=== PATIENT | male | born 2000 | race Asian ===

== ENCOUNTER 2019-05-15 00:44 | Emergency (ER) | payer OTHER ==
[~2019-05-15] VITALS: Ht 162.6 cm; Wt 46.7 kg
[2019-05-15 00:50] VITALS: Ht 162.6 cm; Wt 46.7 kg
[2019-05-15 02:00] LABS: BASOPHIL % 0.3 % (0-2); PLATELET COUNT 305 x10^3mcL (130-400); RED CELL DISTRIBUTION WIDTH 13.2 % (11.5-14.5)
[2019-05-15 02:12] LABS: AMPHETAMINE QUAL UR NONE DETECTED (See below)
[2019-05-15 02:19] LABS: CALCIUM 7.6 mg/dL (8.5-10.1); CARBON DIOXIDE 29.7 mmol/L (21-32); CHLORIDE SERUM 102 mmol/L (98-107); CREATININE SERUM 1.4 mg/dL (0.7-1.3); GFR1 > 60 mL/min; GLUCOSE SERUM 167 mg/dL (74-106); POTASSIUM SERUM 3.7 mmol/L (3.5-5.1); SODIUM SERUM 141 mmol/L (136-145)
[2019-05-15 02:24] LABS: ALBUMIN 3.6 g/dL (3.4-5.0); ALKALINE PHOSPHATASE 99 U/L (46-116); ALT/SGPT 25 U/L (16-63); AST/SGOT 21 U/L (15-37); BILIRUBIN TOTAL 0.21 mg/dL (0.20-1.00)
[2019-05-15 05:03] VITALS: BP 105/69
== END 2019-05-15 05:04 | disposition home or self-care (01) ==
LOC: ED 00:44
PROVIDERS: Emergency Medicine
DX: T40.2X1A Poisoning by other opioids, accidental (unintentional), initial encounter (principal); Y92.89 Other specified places as the place of occurrence of the external cause
CPT/HCPCS: G0480; J2310; J2405

== ENCOUNTER 2020-07-06 13:36 | Emergency (ER) | payer BC ==
[~2020-07-06] VITALS: Ht 162.6 cm; Wt 44.5 kg
[2020-07-06 14:48] LABS: BASOPHIL % 0.2 % (0-2); PLATELET COUNT 386 x10^3mcL (130-400); RED CELL DISTRIBUTION WIDTH 12.8 % (11.5-14.5)
[2020-07-06 16:08] LABS: CALCIUM 9.3 mg/dL (8.5-10.1); CARBON DIOXIDE 25.8 mmol/L (21-32); CHLORIDE SERUM 105 mmol/L (98-107); CREATININE SERUM 0.8 mg/dL (0.7-1.3); GFR1 > 60 mL/min; GLUCOSE SERUM 151 mg/dL (74-106); POTASSIUM SERUM 3.8 mmol/L (3.5-5.1); SODIUM SERUM 142 mmol/L (136-145)
[2020-07-06 16:13] LABS: ALBUMIN 4.6 g/dL (3.4-5.0); ALKALINE PHOSPHATASE 91 U/L (46-116); ALT/SGPT 21 U/L (16-63); AST/SGOT 18 U/L (15-37); BILIRUBIN TOTAL 0.5 mg/dL (0.20-1.00); LIPASE 93 IU/L (73-393); TOTAL PROTEIN, SERUM 7.6 g/dL (6.4-8.2)
[2020-07-06 16:51] VITALS: BP 121/72
== END 2020-07-06 16:51 | disposition home or self-care (01) ==
LOC: ED 13:36
PROVIDERS: Emergency Medicine
DX: K52.9 Noninfective gastroenteritis and colitis, unspecified (principal)
CPT/HCPCS: J1885; J2270; J2405; J7030

== ENCOUNTER 2020-07-09 21:13 | Emergency (ER) | payer BC ==
[~2020-07-09] VITALS: Ht 162.6 cm; Wt 47.6 kg
[2020-07-09 21:30] VITALS: Ht 162.6 cm; Wt 47.6 kg
[2020-07-09 22:40] VITALS: BP 120/77
== END 2020-07-09 22:40 | disposition home or self-care (01) ==
LOC: ED 21:13
DX: R10.9 Unspecified abdominal pain (principal); R11.0 Nausea